=== PATIENT | female | born 1985 | race Caucasian/White ===

== ENCOUNTER 2019-11-28 17:04 | Emergency (ER) | payer OTHER ==
[~2019-11-28] VITALS: Ht 175.3 cm; Wt 83.7 kg
--- NOTE | 2019-11-28 17:32 | NUR ---
PRECISION ASSEMBLER BENCH NOTE: PT WALKED TO ROOM 17, GAIT STEADY.
--- NOTE | 2019-11-28 17:33 | NUR ---
PATIENT WALKED BACK FROM TRIAGE WITH CHIEF COMPLAINT OF HEAD PRESSURE, NECK STIFFNESS, BILATERAL UPPER EXTREMITY NUMBNESS/TINGLING, AND NAUSEA. PATIENT HAD MIGRAINE LAST WEAK WITH SIMILAR SYMPTOMS. PATIENT AT [facility] TODAY FOR HEAD MRI AND LAB WORK. PATIENT IS A&OX4, C/O 01/18 PAIN. ACCOMPANIED BY MOTHER.
[2019-11-28] MEDS ORDERED: LEVO80CA PEG (17:41)
[2019-11-28] MEDS ORDERED: METF500T27 PO (17:42)
[2019-11-28] MEDS ORDERED: [UNRECOGNIZED DRUG - OTHER] (17:43)
[2019-11-28] MEDS ORDERED: AMPH20TA2 PO (17:43)
[2019-11-28] MEDS ORDERED: NORE1TAB11 PO (17:45)
[2019-11-28] MEDS ORDERED: RIME75TA SL (17:46)
[2019-11-28] MEDS ORDERED: SPIR50TA4 PO (17:46)
[2019-11-28] MEDS ORDERED: FREM225A IM (17:47)
--- NOTE | 2019-11-28 18:21 | NUR ---
PA STUDENT AT BEDSIDE FOR EVALUATION. PATIENT C/O WORSENING CHEST PAIN, CONNECTED TO MANUFACTURE SPECIALIST, HR SR IN THE 80S, 2ND EKG OBTAINED.
--- NOTE | 2019-11-28 18:58 | NUR ---
PT LAYING IN BED, RESPIRATIONS EVEN AND UNLABORED. CONNECTED TO CARDIAC, BP AND O2 MONITORS. CALL LIGHT IN REACH, BEDRAILS UPX2, VISITOR AT BEDSIDE. LIGHTS OFF FOR COMFORT.
[2019-11-28] MEDS ORDERED: KETOROLAC 30 MG/1 ML IVPush ONE (19:00)
[2019-11-28] MEDS ORDERED: PROCHLORPERAZINE 5 MG/ML, 2ML IVPush ONE (19:00)
[2019-11-28] MEDS ORDERED: DIPHENHYDRAMINE 50 MG/ML, 1ML IVPush ONE (19:00)
[2019-11-28] MEDS ORDERED: SODIUM CHLORIDE FLUSH 10ML SYR IVF ONE (19:00)
[2019-11-28] MEDS ORDERED: SODIUM CHLORIDE 0.9% 1,000ML IVBOLUS ONE (19:00)
[2019-11-28] MEDS ORDERED: DIPHENHYDRAMINE 50 MG/ML, 1ML ONE (19:09)
[2019-11-28] MEDS ORDERED: PROCHLORPERAZINE 5 MG/ML, 2ML ONE (19:09)
[2019-11-28] MEDS ORDERED: KETOROLAC 30 MG/1 ML ONE (19:09)
[2019-11-28] MEDS ORDERED: MAALOX/HYOSCYAMINE/LIDOCAINE 45 ML BTL ONE (19:20)
[2019-11-28] MEDS ORDERED: MAALOX/HYOSCYAMINE/LIDOCAINE 45 ML BTL PO ONE (19:30)
--- NOTE | 2019-11-28 19:52 | NUR ---
PT STATES SOME RELIEF FROM MEDICATION. LAYING IN BED, RESPIRATIONS EVEN AND UNLABORED, EYES CLOSED.
[2019-11-28 21:05] VITALS: BP 116/76
== END 2019-11-28 21:07 | disposition home or self-care (01) ==
LOC: ED 18:14
DX: G43.001 Migraine without aura, not intractable, with status migrainosus (principal); H53.149 Visual discomfort, unspecified; R00.0 Tachycardia, unspecified
CPT/HCPCS: 93005; 96361; 96374; 96375; 99285; J0780; J1200; J1885; J7030

== ENCOUNTER → 2019-11-28 | Outpatient (CLI) | payer OTHER ==
[~2019-11-28] MED LIST: AMPH20TA2 PO; FREM225A IM; GADOTERATE 10 MMOL/20 ML SYR ONE; LEVO80CA PEG; METF500T27 PO; NORE1TAB11 PO; RIME75TA SL; SPIR50TA4 PO; [UNRECOGNIZED DRUG - OTHER]
== END | disposition home or self-care (01) ==
LOC: RAD 09:23
PROVIDERS: ATTEND Registered Nurse
DX: G43.109 Migraine with aura, not intractable, without status migrainosus (principal); H53.133 Sudden visual loss, bilateral; M62.81 Muscle weakness (generalized)
CPT/HCPCS: 70553; A9575